=== PATIENT | female | born 1980 | race Caucasian/White ===

== ENCOUNTER 2019-03-27 14:32 | Emergency (ER) | payer MEDICARE, MEDICAID ==
--- NOTE | 2019-03-27 15:24 | EDM.PDOCBH ---
ED HPI GENERAL MEDICAL PROBLEM - General Chief Complaint: Behavioral/Psych Stated Complaint: EVAL Time Seen by Provider: 03/27/19 15:00 Source of Information: Reports: Patient, Other (Detox nurses out at [facility]) History Limitations: Reports: No Limitations - History of Present Illness INITIAL COMMENTS - FREE TEXT/NARRATIVE: 39-year-old female that has been in detox at [facility] for the past 3 days, made some comments that she was going to "hang herself" so she was sent in for psychiatric evaluation. She is now claiming she is remorseful about her comments and didn't mean them, however she did have a significant self-harm event several weeks ago when she overdosed on Xanax. Her drugs of choice are methamphetamine and heroin. She was in a intermediate house, was released on Sunday and used drugs that day, and was admitted to detox the following morning. She has no physical complaints, but she is tearful when talking about her condition and her main concern is that she "can't sleep". She is asking to go back to [facility] to finish her treatment. Onset: Unknown/Unsure Associated Symptoms: Reports: No Other Symptoms - Related Data Allergies Allergy/AdvReac Type Severity Reaction Status Date / Time paliperidone [From Invega] Allergy Cannot Verified 03/27/19 14:51 Remember Penicillins Allergy Hives Verified 03/27/19 14:51 pineapple Allergy Anaphylactic Verified 03/27/19 14:51 Shock prednisone Allergy Agitation Verified 03/27/19 14:51 shellfish derived Allergy Anaphylactic Verified 03/27/19 14:51 Shock silver sulfadiazine Allergy Hives Verified 03/27/19 14:51 [From Silvadene] Sulfa (Sulfonamide Allergy Hives Verified 03/27/19 14:51 Antibiotics) Home Meds: Home Meds ARIPiprazole [Abilify] 10 mg PO DAILY 03/27/19 [History] Prazosin [Minpress] 2 mg PO DAILY 03/27/19 [History] buPROPion [Wellbutrin] 450 mg PO DAILY 03/27/19 [History] Past Medical History HEENT History: Reports: None Gastrointestinal History: Reports: None Genitourinary History: Reports: Other (See Below) Other Genitourinary History: history of kidney problems Musculoskeletal History: Reports: Arthritis, Fibromyalgia Neurological History: Reports: Migraines, Seizure Psychiatric History: Reports: Addiction, Anxiety, Depression, Hallucinations, PTSD, Suicide Attempt, Suicidal Ideation - Past Surgical History Head Surgeries/Procedures: Reports: None HEENT Surgical History: Reports: Tonsillectomy GI Surgical History: Reports: Cholecystectomy Neurological Surgical History: Reports: None Musculoskeletal Surgical History: Reports: None Dermatological Surgical History: Reports: None Social & Family History - Family History Family Medical History: Noncontributory - Tobacco Use Smoking Status *Q: Current Every Day Smoker Years of Tobacco use: 25 Packs/Tins Daily: 1 - Caffeine Use Caffeine Use: Reports: Soda - Recreational Drug Use Recreational Drug Use: Yes Drug Use in Last 12 Months: Yes Recreational Drug Type: Reports: Heroin, Marijuana/Hashish, Methamphetamine, Other (see below) Other Recreational Drug Type: acid Recreational Drug Use Frequency: Daily ED ROS GENERAL - Review of Systems Review Of Systems: See Below Constitutional: Denies: Fever, Chills HEENT: Reports: No Symptoms Respiratory: Reports: No Symptoms Cardiovascular: Reports: No Symptoms GI/Abdominal: Reports: No Symptoms : Reports: No Symptoms Skin: Reports: No Symptoms Neurological: Denies: Headache ED EXAM, BEHAVIORAL HEALTH - Physical Exam Exam: See Below Exam Limited By: No Limitations General Appearance: Alert, No Apparent Distress Eye Exam: Bilateral Eye: Normal Inspection Respiratory/Chest: No Respiratory Distress, Lungs Clear Cardiovascular: Regular Rate, Rhythm Neurological: Alert, Oriented x 3 Psychiatric: Depressed Mood, Flat Affect, Tearful Skin Exam: Warm, Dry COURSE, BEHAVIORAL HEALTH COMP - Course Vital Signs: Last Vital Signs Temp 97.9 F 03/27/19 14:39 Pulse 76 03/27/19 14:39 Resp 16 03/27/19 14:39 BP 118/36 L 03/27/19 14:39 Pulse Ox 97 03/27/19 14:39 Re-Assessment/Re-Exam: Patient displayed some remorse about her comments and insisted she was not suicidal. She had a phone consultation with the nurses at [facility], and they agreed to take her back and give her another chance. Departure - Departure Time of Disposition: 17:09 Disposition: DC/Tfer to Other 70 Clinical Impression: Depressive disorder - Discharge Information Instructions: Living With Depression, Suicidal Feelings: How to Help Yourself Referrals: PCP,None [Primary Care Provider] - Forms: ED Department Discharge Care Plan Goals: Return to [facility] and follow the protocol and treatment recommendations.
== END 2019-03-27 17:00 | disposition other institution (70) ==
LOC: JP.ED 14:32 → EDSEX 14:32 → JP.ED 17:00
DX: F32.9 Major depressive disorder, single episode, unspecified (principal); F41.9 Anxiety disorder, unspecified; Z88.0 Allergy status to penicillin; Z91.013 Allergy to seafood; Z88.8 Allergy status to other drugs, medicaments and biological substances; Z91.018 Allergy to other foods; Z88.2 Allergy status to sulfonamides; Z79.899 Other long term (current) drug therapy
CPT/HCPCS: 99284

== ENCOUNTER 2019-10-16 09:44 | Emergency (ER) | payer MEDICARE, MEDICAID ==
--- NOTE | 2019-10-16 10:14 | EDM.PDOCBH ---
ED HPI GENERAL MEDICAL PROBLEM - General Chief Complaint: Behavioral/Psych Stated Complaint: EVAL Time Seen by Provider: 10/16/19 10:05 Source of Information: Reports: Patient, Old Records - History of Present Illness INITIAL COMMENTS - FREE TEXT/NARRATIVE: 39 yo female from [place], [place] with a pHx of depression and alcohol/drug abuse is currently a patient at [facility] where she has been for the past roughly week and a half. She is sent to our ER today for suicidal ideations. Patient states she feels her meds are not right. Here in the ER now states she is under a lot of stress, but is not suicidal. Had a TSH in late 2019 of 1.95. Is s/ p abdominal hysterectomy. Onset: Gradual Duration: Day(s):, Waxing/Waning Location: Reports: Generalized Quality: Reports: Other (no pain reported) Severity: Moderate (degree of suicidality) Improves with: Reports: None Worsens with: Reports: Other (time) Context: Reports: Other (See HPI) Associated Symptoms: Reports: No Other Symptoms Treatments [employer]: Reports: Other (see below) (usual meds) - Related Data Allergies Allergy/AdvReac Type Severity Reaction Status Date / Time paliperidone [From Invega] Allergy Cannot Verified 10/16/19 10:14 Remember Penicillins Allergy Hives Verified 10/16/19 10:14 pineapple Allergy Anaphylactic Verified 10/16/19 10:14 Shock prednisone Allergy Agitation Verified 10/16/19 10:14 shellfish derived Allergy Anaphylactic Verified 10/16/19 10:14 Shock silver sulfadiazine Allergy Hives Verified 10/16/19 10:14 [From Silvadene] Sulfa (Sulfonamide Allergy Hives Verified 10/16/19 10:14 Antibiotics) Home Meds: Home Meds ARIPiprazole [Abilify] 10 mg PO DAILY 03/27/19 [History] Prazosin [Minpress] 1 mg PO DAILY 03/27/19 [History] buPROPion [Wellbutrin] 300 mg PO DAILY 03/27/19 [History] Amphetamine/Dextroamphetamine [Adderall XR] 30 mg PO DAILY 10/16/19 [History] Gabapentin [Neurontin] 300 mg PO TID 10/16/19 [History] Mirtazapine 15 mg PO DAILY 10/16/19 [History] Montelukast [Singulair] 10 mg PO DAILY 10/16/19 [History] Omeprazole Magnesium [Prilosec Otc] 1 tab PO DAILY 10/16/19 [History] hydrOXYzine HCL [hydrOXYzine] 1 - 2 tab PO Q6H PRN 10/16/19 [History] Past Medical History HEENT History: Reports: None Gastrointestinal History: Reports: None Genitourinary History: Reports: Other (See Below) Other Genitourinary History: history of kidney problems Musculoskeletal History: Reports: Arthritis, Fibromyalgia Neurological History: Reports: Migraines, Seizure Psychiatric History: Reports: Addiction, Anxiety, Depression, Hallucinations, PTSD, Suicide Attempt, Suicidal Ideation - Past Surgical History Head Surgeries/Procedures: Reports: None HEENT Surgical History: Reports: Tonsillectomy GI Surgical History: Reports: Cholecystectomy Neurological Surgical History: Reports: None Musculoskeletal Surgical History: Reports: None Dermatological Surgical History: Reports: None Social & Family History - Family History Family Medical History: Noncontributory - Caffeine Use Caffeine Use: Reports: Soda ED ROS GENERAL - Review of Systems Review Of Systems: Comprehensive ROS is negative, except as noted in HPI. Psychiatric: Reports: Depression. Denies: Suicidal Ideation (denies, says that she often states this, but does not mean it.) ED EXAM, BEHAVIORAL HEALTH - Physical Exam Exam: See Below Exam Limited By: No Limitations General Appearance: Alert, WD/WN, No Apparent Distress Eye Exam: Bilateral Eye: Normal Inspection Ears: Normal External Exam, Normal Canal, Hearing Grossly Normal, Normal TMs Nose: Normal Inspection, No Blood Throat/Mouth: Normal Inspection, Normal Lips, Normal Oropharynx, Normal Voice, No Airway Compromise Head: Atraumatic, Normocephalic Neck: Normal Inspection Respiratory/Chest: No Respiratory Distress, Lungs Clear, Normal Breath Sounds, No Accessory Muscle Use Cardiovascular: Regular Rate, Rhythm, No Edema GI/Abdominal: Soft, Non-Tender, No Distention Back Exam: No: CVA Tenderness (R), CVA Tenderness (L) Extremities: Normal Inspection, Normal Range of Motion, Non-Tender, No Pedal Edema Neurological: Alert, Normal Mood/Affect, CN II-XII Intact, No Motor/Sensory Deficits, Oriented x 3 Psychiatric: Alert, Normal Affect, Normal Cognition, Normal Mood, Oriented Skin Exam: Warm, Dry, Intact, Normal color, No rash COURSE, BEHAVIORAL HEALTH COMP - Course Vital Signs: Last Vital Signs Temp 36.8 C 10/16/19 10:16 Pulse 77 10/16/19 10:16 Resp 17 10/16/19 10:16 BP 119/83 10/16/19 10:16 Pulse Ox 96 10/16/19 10:16 Medical Clearance: 10/16/19 13:04 Medically stable. Crisis here and feels patient can be returned to [facility]. Departure - Departure Time of Disposition: 13:05 Disposition: Home, Self-Care 01 Condition: Good Clinical Impression: Alcohol abuse, Illicit drug use Depression Qualifiers: Depression Type: unspecified Qualified Code(s): F32.9 - Major depressive disorder, single episode, unspecified - Discharge Information *PRESCRIPTION DRUG MONITORING PROGRAM REVIEWED*: Not Applicable *COPY OF PRESCRIPTION DRUG MONITORING REPORT IN PATIENT EMILY: Not Applicable Referrals: PCP,None [Primary Care Provider] - Forms: ED Department Discharge Sepsis Event Note - Focused Exam Vital Signs: Vital Signs Temp Pulse Resp BP Pulse Ox 10/16/19 10:16 36.8 C 77 17 119/83 96 10/16/19 09:52 36.8 C 77 17 119/83 96 Date Exam was Performed: 10/16/19 Time Exam was Performed: 13:02
== END 2019-10-16 14:04 | disposition home or self-care (01) ==
LOC: JP.ED 09:44
DX: F32.9 Major depressive disorder, single episode, unspecified (principal); F10.10 Alcohol abuse, uncomplicated; F19.10 Other psychoactive substance abuse, uncomplicated; F41.9 Anxiety disorder, unspecified; Z79.899 Other long term (current) drug therapy; Z91.018 Allergy to other foods; Z91.013 Allergy to seafood; Z88.2 Allergy status to sulfonamides; Z88.8 Allergy status to other drugs, medicaments and biological substances; Z88.0 Allergy status to penicillin
CPT/HCPCS: 99283